=== PATIENT | female | born 1990 | race Caucasian/White ===

== ENCOUNTER 2016-07-22 18:02 | Emergency (ER) | payer OTHER ==
[2016-07-22 19:58] LABS: HEMOGLOBIN 11.4 gm/dl (12.3-15.3); RED BLOOD COUNT 3.51 M/UL (4.00-5.10)
[2016-07-22 20:14] LABS: BUN/CREATININE RATIO 10 (0-10)
== END 2016-07-22 21:37 | disposition home or self-care (01) ==
LOC: ER1 18:02
PROVIDERS: Family Medicine
DX: R10.32 Left lower quadrant pain (principal)
CPT/HCPCS: 36415; 80053; 81001; 84702; 84703; 85025; 99284